=== PATIENT | male | born 1990 ===

== ENCOUNTER 2019-02-04 02:21 | Emergency (ER) | payer SELFPAY ==
[~2019-02-04] VITALS: Ht 180 cm; Wt 85.0 kg
[2019-02-04 02:25] VITALS: BP 135/73; PULSE 76; TEMP 99.1
[2019-02-04] MEDS ORDERED: AMOXICILLIN 50500 MG PO (02:46)
== END 2019-02-04 02:57 | disposition home or self-care (01) ==
LOC: COL.ER 02:21
DX: H66.92 Otitis media, unspecified, left ear (principal)

== ENCOUNTER 2019-02-11 00:46 | Emergency (ER) | payer OTHER ==
[~2019-02-11] VITALS: Ht 185 cm; Wt 85.0 kg
[~2019-02-11 00:46] MED LIST: AMOXICILLIN 50500 MG PO
[2019-02-11 01:02] VITALS: BP 144/84; PULSE 72; TEMP 98.9
== END 2019-02-11 03:01 | disposition home or self-care (01) ==
LOC: COL.ER 00:46
DX: S61.213A Laceration without foreign body of left middle finger without damage to nail, initial encounter (principal); W25.XXXA Contact with sharp glass, initial encounter; Y92.219 Unspecified school as the place of occurrence of the external cause

== ENCOUNTER → 2019-02-20 | Outpatient (CLI) | payer OTHER ==
[2019-02-20 09:38] VITALS: BP 135/76; PULSE 65; TEMP 97.9
== END ==
LOC: COL.ER 09:02
DX: S61.219D Laceration without foreign body of unspecified finger without damage to nail, subsequent encounter (principal); X58.XXXD Exposure to other specified factors, subsequent encounter

== ENCOUNTER 2020-03-29 02:07 | Emergency (ER) | payer OTHER ==
[~2020-03-29] VITALS: Ht 180 cm; Wt 80.0 kg
[2020-03-29 02:13] VITALS: BP 169/82; PULSE 75; TEMP 98.7
== END 2020-03-29 03:22 | disposition home or self-care (01) ==
LOC: COL.ER 02:07
DX: Z77.098 Contact with and (suspected) exposure to other hazardous, chiefly nonmedicinal, chemicals (principal); Z90.89 Acquired absence of other organs